=== PATIENT | female | born 1985 | race Caucasian/White ===

== ENCOUNTER 2018-12-15 11:16 | Observation (INO) | payer MEDICAID, SELFPAY ==
[2018-12-15 11:11] VITALS: BP 127/80; PULSE 89; RESP 16; TEMP 36.8; O2SAT 97
--- NOTE | 2018-12-15 11:20 | ED.GENADUL_ITS ---
Discharge Plan Disposition Patient Disposition: [facility] INPATIENT Condition: Stable Discharge Details Chief Complaint: [employer] Clinical Impression: Abdominal pain during in third trimester, Uterine contractions Admit Date/Time: 12/15/18 11:22 Admit Provider: Mohit Callahan Attending Provider: Mohit Callahan Primary Care Provider: Unknown,Unknown ED Provider: Elaine Feng Discharge Data Discharge Date/Time-TO BE ENTERED AT DEPARTURE: 12/15/18 11:24 Medical Decision Making 33-year-old female G5, P2 at 37 weeks who presents with abdominal contractions starting 3 hours ago. States the contractions around 10 to 15 minutes apart. Patient arrived per EMS who noted that she appeared to be possibly having contractions every 2 to 3 minutes. She is hemodynamically stable. She arrives to the ED appearing comfortable and relaxed. She denies vaginal bleeding or gush of fluid. Case discussed with labor and delivery nurse Marianna Rodriguez who accepts patient for transfer to the floor for monitoring. Page placed out to Dr. Rueda to accept patient for admission to OB. 1130 --discussed with Dr. Donovan who is on-call -she accepts patient for transfer to OB floor and will follow up with Dr. Rueda. HPI General Mode of arrival: EMS . Date/Time Provider Initiated Documentation: 12/15/18 11:20 . Limitations to Documentation: no limitations . Information obtained by: patient . HPI Narrative: Patient is a 33-year-old female L2 at 37 weeks who presents with abdominal contractions since 830 this morning approximately 3 hours ago. She states they were initially occurring every 25 minutes, but now are occurring every 10 to 15 minutes. She admits to a small amount of vaginal bleeding last night but none today. She denies a gush of fluid. She states she is followed by Dr. Rueda at [facility]. EMS notes that it appeared that patient may have been having contractions every 2 to 3 minutes. Related Data Allergies Allergy/AdvReac Type Severity Reaction Status Date / Time bee venom protein (honey bee) Allergy Severe Anaphylaxsi Unverified 12/16/18 10:13 s penicillin V Allergy Severe Anaphylaxsi Unverified 12/16/18 10:13 s Fish Allergy Severe Anaphylaxsi Uncoded 12/16/18 10:13 s Blueberry Flavor Allergy Mild Skin Rash Uncoded 12/16/18 10:13 General Stated Complaint: [employer] LILIBETH: 2 Review of Systems Review of Systems All systems reviewed & are unremarkable except as noted in HPI and below Constitutional Reports as per HPI, Denies chills and Denies fever(s) Eyes Denies blurry vision ENT Denies dizziness, Denies sore throat and Denies throat swelling Cardiovascular Denies chest pain and Denies dyspnea Respiratory Denies cough and Denies dyspnea Gastrointestinal Reports abdominal pain, Denies diarrhea and Denies vomiting Genitourinary Denies hematuria and Denies dysuria Musculoskeletal Denies back pain and Denies numbness Integumentary/Breasts Denies lesions and Denies rash Neurologic Denies dizziness, Denies focal weakness and Denies numbness Allergic/Immunologic Denies throat swelling REPLACED BY [facility] Medical History No significant past medical history (Acute) Surgical History No significant past surgical history (Acute) Social History Smoking/Tobacco Use Status: Current-Occasional Tobacco Type: cigarettes Alcohol Intake: never Substance use type: does not use Do you feel safe at home: Yes Exam Const General: cooperative, healthy appearing and no acute distress HENMT Head: normal to inspection Face and sinus: normal facial exam Eyes General: appearance normal, both eyes and all related structures EOM: EOM intact bilaterally Neck Neck: normal visual inspection and No submandibular swelling Lymphatic: no lymphadenopathy noted Chest Chest: normal inspection of the chest and no tenderness Resp Effort & Inspection: normal respiratory effort and able to speak in complete sentences Auscultation: clear to auscultation bilaterally Cardio Rate: regular rate Rhythm: regular rhythm GI Palpation: firm and nontender Other: gravid Skin General skin exam: no rashes or lesions noted Neuro General: alert, awake and oriented x3 Cognition: normal cognition Speech: speech normal Motor: muscle tone normal throughout Sensory Exam: no sensory deficits noted Extrem General: normal to inspection, full ROM, normal capillary refill, no calf tenderness bilaterally and no edema Psych Appearance: grossly normal Mental Status: mental status grossly normal Speech and Movement: speech and movement normal Affect: normal affect Course Vital Signs Temperature 98.2 F 12/15/18 11:11 Pulse 89 12/15/18 11:11 Respiratory Rate 16 12/15/18 11:11 Blood Pressure 127/80 12/15/18 11:11 Pulse Oximetry 97 12/15/18 11:11 Temperature 98.2 F 12/15/18 11:11 Temperature Source Skin 12/15/18 11:11 Pulse 89 12/15/18 11:11 Respiratory Rate 16 12/15/18 11:11 Respiratory Effort Non-Labored 12/15/18 11:17 Blood Pressure 127/80 12/15/18 11:11 Pulse Oximetry 97 12/15/18 11:11 Oxygen Delivery Method Room Air 12/15/18 11:11 Oxygen Flow Rate 0 12/15/18 11:11
== END 2018-12-15 14:50 | disposition home or self-care (01) ==
LOC: ER 11:26 → OBS 11:29
PROVIDERS: Admitting Provider Family Medicine; Emergency Provider Physician Assistant; Visit Provider Family Medicine
DX: Z3A.36 36 weeks gestation of pregnancy; O47.03 False labor before 37 completed weeks of gestation, third trimester
CPT/HCPCS: 84112; 96360; 96361; 99285; 99283; G0378

== ENCOUNTER 2019-01-07 16:06 | Observation (INO) | payer MEDICAID, SELFPAY | END 2019-01-07 17:35 | disposition home or self-care (01) | LOC: OBS 17:16 | PROVIDERS: Admitting Provider Family Medicine; Visit Provider Family Medicine | DX: O47.1 False labor at or after 37 completed weeks of gestation (principal); Z3A.39 39 weeks gestation of pregnancy | CPT/HCPCS: G0378 ==

== ENCOUNTER 2019-01-07 23:17 | Inpatient (IN) | payer MEDICAID, SELFPAY ==
[2018-12-15 12:44] LABS: ROM Plus Negative
--- NOTE | 2019-01-08 00:29 | HPE_ITS ---
History of Present Illness 33 yr old at 40 0/7 weeks with regular ctx and some cervical change. no rom, good fm, some bloody show. Partner, Colton, present. Two 5# 9 oz, 7# 6 oz - both girls. current preg = male early care, solid dating criteria c/w EDC 01/08/2019 persistent cig use, no substance use 24 week GST 147 - nl 3 hr gTT unemployed, housing in flux GBS neg allergies as shown labs wnl, per pn records meds: pnv, Iron exam: Alert, strong, up walking, tolerating mild/mod ctx well lungs - clear cv s- reg, no murmur ext - no edema, good sensation and pulses abd - fundus ~38 cm, non-tender, mod firm with ctx, fmvt palpated, vtx by susanna ruano poor dental condition NST - cat 1, mild/mod ctx q ~4 min, no decels admit labs pending cvx - 3 cm, 70%, -2, vtx per travel journalist ASS: early labor - some cervical change vs 5 pm exam and maternal well being expect , hl in place ambulate, nitrous prn pending progress, may AROM per her request to accelerate labor low/avg risk for shoulder dystocia - proven pelvis and avg sized by sintia webb, no GDM Plan: expect , ambulate sLeni gonzalez [facility] Social History Smoking/Tobacco Use Status: Current-Occasional Tobacco Type: cigarettes Alcohol Intake: never Substance use type: does not use Do you feel safe at home: Yes Meds Allergies Allergy/AdvReac Type Severity Reaction Status Date / Time bee venom protein (honey bee) Allergy Severe Anaphylaxsi Unverified 01/08/19 00:33 s penicillin V Allergy Severe Anaphylaxsi Unverified 01/08/19 00:33 s Fish Allergy Severe Anaphylaxsi Uncoded 01/08/19 00:33 s Blueberry Flavor Allergy Mild Skin Rash Uncoded 01/08/19 00:33 Results Labs : 01/08/19 00:35
[2019-01-08 00:43] LABS: HCT 35.2 % (36.0-46.0); HGB 11.7 g/dL (12.0-15.5); Mean Corp. HGB Concentration 33.2 g/dL (32.0-36.0); Mean Corpuscular Volume 93.1 fL (80-95); Mean Platelet Volume 10.9 fL (8.0-11.0); Platelet Count 369 x1000/uL (130-400); RBC 3.78 m/cumm (4.00-5.20); RBC Distribution Width 13.4 % (11.7-14.6); White Blood Cell Count 11.44 k/cumm (4.4-10.8)
[2019-01-08] MEDS: Oxytocin 10 UNITS/ML VIAL IM (04:47)
[2019-01-08] MEDS: Lactated Ringers 1,000 ML 150 ML IV (10:00)
--- NOTE | 2019-01-08 10:03 | W.GYNCONSULT ---
Date of service: 01/08/19 Time of Service: 10:03 Assessment and Plan (1) Sterilization consult: Current visit: Yes Status: Acute Multiparity and desire for permanent sterilization. We discussed the intended irreversibility of tubal sterilization. She has been counseled on alternative forms of contraception. Risks related to surgery were reviewed with the patient. Plan to proceed with tubal sterilization. (2) (normal spontaneous vaginal delivery): Current visit: Yes Status: Acute History of Present Illness Chief Complaint: Multiparity and desire for permanent sterilization Consults Consult date: 01/08/19 Requesting physician: Ben Isbell Review of Systems Review of Systems All systems reviewed & are unremarkable except as noted in HPI and below PFSH Social History Smoking/Tobacco Use Status: Current-Occasional Tobacco Type: cigarettes Alcohol Intake: never Substance use type: does not use Do you feel safe at home: Yes Exam Resp Auscultation: clear to auscultation bilaterally Cardio Rate: regular rate Rhythm: regular rhythm Results Labs : 01/08/19 00:35 Laboratory Results - last 24 hr 01/08/19 01/08/19 00:35 00:35 WBC 11.44 H RBC 3.78 L Hgb 11.7 L Hct 35.2 L MCV 93.1 MCH 31.0 MCHC 33.2 RDW 13.4 Plt Count 369 MPV 10.9 Patient ABO/Rh A Positive Antibody Screen Negative
[2019-01-08] MEDS: Normal Saline Flush 10 ML SYR IVP (12:00)
[2019-01-08] MEDS: Bupivacaine 0.5% Pres-Free 30 ML VIAL (14:50)
--- NOTE | 2019-01-08 14:50 | FALL_PTH ---
PATIENT: Yola Newby LOC: OBS U#:[id number] AGE/SX: 33/F ROOM: OBS.301 RE01/08/[address]: Ben Isbell : 1985 BED: A DIS: 01/09/2019 SPEC #: [id number] RECD: 01/08/19 17:07 STATUS: PONCHO RE #: [id number] DIONE: 01/08/19 14:[address]: Alex Estrada DEPT: Surgical Specimen RECD BY: Susy Barrera ENTERED: 01/08/19 17:10 SP TYPE: Fall OTHR DR: Ben Isbell Tissues: 1 - FALLOPIAN TUBE (STERILIZATION) 2 - FALLOPIAN TUBE (STERILIZATION) Procedures: GROSS AND MICRO LEVEL 2 Comments: [id number]
[2019-01-08 15:06] VITALS: BP 103/52; PULSE 66; RESP 13; TEMP 36.8; O2SAT 94
[2019-01-08 15:11] VITALS: BP 111/40; PULSE 70; RESP 20; TEMP 36.8; O2SAT 94
[2019-01-08 15:16] VITALS: BP 101/40; PULSE 71; RESP 25; TEMP 36.8; O2SAT 94
[2019-01-08 15:21] VITALS: BP 101/39; PULSE 67; RESP 16; TEMP 36.8; O2SAT 94
[2019-01-08 15:34] VITALS: BP 97/40; PULSE 65; RESP 13; TEMP 36.8; O2SAT 96
--- NOTE | 2019-01-08 16:16 | W.PM.OP ---
Date of service: 01/08/19 Time of Service: 16:16 Operative Note DATE OF PROCEDURE: 01/08/19 PRE-OP DIAGNOSIS: Multiparity and desire for permanent sterilization POST-OP DIAGNOSIS: same PROCEDURE: tubal ligation SURGEON: Alex Estrada ASSISTING SURGEON: Stephanie Winn ANESTHESIA: spinal ESTIMATED BLOOD LOSS: 0 PATHOLOGY: other (Bilateral fallopian tube segments) COMPLICATIONS: None Patient was transported to: PACU Patient's condition: stable Findings: 1. Normal tubal anatomy Procedure Description: The patient was taken to the operating room and after adequate spinal anesthesia was obtained. The patient was placed in supine position. The patient was prepped and draped in the usual sterile manner. Skin and subcutaneous tissues were infiltrated with 0.25% Marcaine solution. A small infraumbilical skin incision was then made with a #15 blade scalpel. Sharp dissection was carried down to the base of the umbilical ligament. The fascia was grasped elevated with 2 Lianet clamps and incised sharply with a 15 blade scalpel. The peritoneum was entered sharply with a hemostat. S retractor was placed. 2 sutures of 0 Vicryl were placed on either side of the fascial incision. The right fallopian tube was identified. It was grasped and elevated with a Mariana clamp and followed out to the fimbrial end. The loop segment was doubly ligated with 0 plain gut suture. The loop segment was excised with Metzenbaum scissors. Excellent hemostasis was noted. A similar procedure was carried out on the opposite side. Both fallopian tube segments were submitted to pathology. The fascia was closed with 2 [id number] sutures of 0 Vicryl. Skin was closed with interrupted sutures of 4 Monocryl and Dermabond was applied. The procedure was concluded at this point. Sponge, lap and instrument counts were correct at the conclusion of the procedure. The patient was transferred to PACU in stable condition.
[2019-01-08] MEDS: Acetaminophen 325 MG TAB 650 MG PO (17:15)
[2019-01-08] MEDS: HYDROcodone 5/Acetaminophen 325 TAB PO (22:00)
[2019-01-09 07:21] LABS: HCT 35.4 % (36.0-46.0); HGB 11.6 g/dL (12.0-15.5); Mean Corp. HGB Concentration 32.8 g/dL (32.0-36.0); Mean Corpuscular Hemoglobin 30.8 pg (27.0-33.0); Mean Corpuscular Volume 93.9 fL (80-95); Mean Platelet Volume 11.4 fL (8.0-11.0); Platelet Count 295 x1000/uL (130-400); RBC 3.77 m/cumm (4.00-5.20); RBC Distribution Width 13.5 % (11.7-14.6); White Blood Cell Count 12.27 k/cumm (4.4-10.8)
--- NOTE | 2019-01-09 08:17 | W.PM.PROGNOT ---
Date of Service Date of service: 01/09/19 Time of Service: 08:17 Assessment and Plan Assessment and plan (1) (normal spontaneous vaginal delivery): Status: Acute (2) S/P tubal ligation: Status: Acute Assessment and plan: Continue routine postop / care. Follow up as needed. Subjective Subjective Interval history since last seen: Doing well this morning. Pain well controlled. Tolerating regular diet. Objective Objective Clinical Data: Abnormal lab results 01/09/19 Range/Units 06:15 WBC 12.27 H (4.4-10.8) k/cumm RBC 3.77 L (4.00-5.20) m/cumm Hgb 11.6 L (12.0-15.5) g/dL Hct 35.4 L (36.0-46.0) % MPV 11.4 H (8.0-11.0) fL Vital Signs Temperature 98.2 F 01/08/19 15:34 Pulse 65 01/08/19 15:34 Respiratory Rate 13 01/08/19 15:34 Blood Pressure 97/40 L 01/08/19 15:34 Pulse Oximetry 96 01/08/19 15:34 Oxygen Delivery Method Room Air 01/08/19 15:34 Pain Level 4 01/08/19 23:00 Intake & Output 01/08/19 01/08/19 01/09/19 11:59 23:59 11:59 Intake Total 900 / 900 Balance 900 / 900 Weight 181 lb Intake: IV 900 / 900 Other: Emesis Description None Laboratory Results WBC 12.27 k/cumm (4.4-10.8) H 01/09/19 06:15 RBC 3.77 m/cumm (4.00-5.20) L 01/09/19 06:15 Hgb 11.6 g/dL (12.0-15.5) L 01/09/19 06:15 Hct 35.4 % (36.0-46.0) L 01/09/19 06:15 MCV 93.9 fL (80-95) 01/09/19 06:15 MCH 30.8 pg (27.0-33.0) 01/09/19 06:15 MCHC 32.8 g/dL (32.0-36.0) 01/09/19 06:15 RDW 13.5 % (11.7-14.6) 01/09/19 06:15 Plt Count 295 x1000/uL (130-400) 01/09/19 06:15 MPV 11.4 fL (8.0-11.0) H 01/09/19 06:15 Membranes Rupture Negative 12/15/18 11:55 Patient ABO/Rh A Positive 01/08/19 00:35 Antibody Screen Negative 01/08/19 00:35
[2019-01-09] MEDS: Acetaminophen 325 MG TAB 650 MG PO (08:36)
[2019-01-09] MEDS: HYDROcodone 5/Acetaminophen 325 TAB PO (13:29)
== END 2019-01-09 16:45 | disposition home or self-care (01) | DRG 798 ==
PROVIDERS: Family Medicine; Obstetrics & Gynecology; Admitting Provider Family Medicine; Visit Provider Family Medicine
PROC: 0UB70ZZ Excision of Bilateral Fallopian Tubes, Open Approach (ICD-10-PCS; CPT 58605; principal; 2019-01-08 13:30)
DX: O77.0 Labor and delivery complicated by meconium in amniotic fluid (principal); Z37.0 Single live birth; O69.81X0 Labor and delivery complicated by cord around neck, without compression, not applicable or unspecified; O99.334 Smoking (tobacco) complicating childbirth; Z3A.40 40 weeks gestation of pregnancy; Z30.2 Encounter for sterilization; F17.210 Nicotine dependence, cigarettes, uncomplicated
CPT/HCPCS: 58605; 36415; 85027; 86850; 86900; 86901; 99222; 99233; 99253; 88302; G0378; J2250; J2590

== ENCOUNTER 2019-04-07 11:10 | Outpatient (REF) | payer MEDICAID, SELFPAY ==
[2019-04-09 15:08] LABS: Chlamydia Result Negative (Negative)
[2019-04-09 15:43] LABS: GC Result Negative (Negative)
== END 2019-04-07 11:30 ==
LOC: NCHCN 11:10
PROVIDERS: PCP Nurse Practitioner Family; Visit Provider Nurse Practitioner Family
DX: N92.6 Irregular menstruation, unspecified (principal); R10.2 Pelvic and perineal pain; Z11.3 Encounter for screening for infections with a predominantly sexual mode of transmission
CPT/HCPCS: 87491; 87591; 87480; 87510; 87660

== ENCOUNTER 2020-03-19 16:07 | Outpatient (REF) | payer MEDICAID, SELFPAY ==
[2020-03-21 22:05] LABS: SARS-CoV-2 RNA Source Nasal/Nares
[2020-03-22 12:11] LABS: SARS-CoV-2 RNA Not Detected (NotDetected)
== END 2020-03-19 16:27 ==
LOC: LBN 16:07
PROVIDERS: PCP Nurse Practitioner Family; Visit Provider Nurse Practitioner Adult Health
DX: Z11.59 Encounter for screening for other viral diseases (principal)
CPT/HCPCS: U0003

== ENCOUNTER 2020-11-09 10:43 | Outpatient (REF) | payer MEDICAID, SELFPAY ==
--- NOTE | 2020-11-09 14:15 | PAPFT_PTH ---
PATIENT: Yola Newby LOC: NCN U#:[id number] AGE/SX: 35/F ROOM: RE11/09/[address]: Rosey Juarez : 1985 BED: DIS: 11/09/2020 SPEC #: [id number] RECD: 11/10/20 12:44 STATUS: PONCHO RELavelle #: [id number] DIONE: 11/09/20 14:[address]: Rosey Juarez DEPT: [facility] Cytology RECD BY: Susy Barrera Tissues: 1 - CX/ENDOCX FOR PAP SMEARS Procedures: PAP THIN PREP/UVM Screening HPV DNA PROBE Comments: [id number] (HPV 16 & 18/45)
[2020-11-09 20:21] LABS: ALT 36 U/L (14-59); AST 25 U/L (15-37); Albumin 3.9 g/dL (3.4-5.0); Alkaline Phosphatase 84 U/L (46-116); Anion Gap 10.4 mmol/L (3-11); BUN 15 mg/dL (7-18); Bilirubin, Total 0.4 mg/dL (0.2-1.0); CO2 23.6 mmol/L (21.0-32.0); CREATININE 0.6 mg/dL (0.55-1.02); Calcium 9.3 mg/dL (8.5-10.1); Chloride 106 mmol/L (98-107); Glucose 92 mg/dL (74-106); Potassium 4.8 mmol/L (3.5-5.1); Sodium 140 mmol/L (136-145); TSH (W/Ref FT4) 1.41 uIU/mL (0.36-3.74); Total Protein 7.3 g/dL (6.4-8.2)
[2020-11-10 20:34] LABS: Calculated LDL 103 mg/dL (<100); Cholesterol 189 mg/dL (<200); HDL Cholesterol 28 mg/dL (40-60); Triglyceride 290 mg/dL (<150)
== END 2020-11-09 10:44 | disposition home or self-care (01) ==
LOC: NCHCN 10:43
PROVIDERS: PCP Nurse Practitioner Family; Visit Provider Nurse Practitioner Family
DX: R63.5 Abnormal weight gain (principal); Z13.228 Encounter for screening for other metabolic disorders; Z13.220 Encounter for screening for lipoid disorders; Z12.4 Encounter for screening for malignant neoplasm of cervix; Z11.51 Encounter for screening for human papillomavirus (HPV); R87.810 Cervical high risk human papillomavirus (HPV) DNA test positive
CPT/HCPCS: 80053; 80061; 88142; 83036; 84443; 87624

== ENCOUNTER 2021-06-06 15:03 | Emergency (ER) | payer MEDICAID, SELFPAY ==
[2021-06-06 15:21] VITALS: BP 150/103; PULSE 91; RESP 18; TEMP 36.7; O2SAT 98
--- NOTE | 2021-06-06 15:58 | ED.GENADUL_ITS ---
Discharge Plan Disposition Patient Disposition: HOME Condition: Stable Discharge Details Clinical Impression: Headache, temporal Primary Care Provider: Rosey Juarez ED Provider: Naida Menezes Home Meds and New Rx's Prescriptions: Continued calcium carbonate [Tums] 200 mg calcium (500 mg) tablet,chewable 200 mg PO PRN RF: 0 ibuprofen 600 mg tablet 600 mg PO Q6H PRN (Reason: pain) Qty: 30 RF: 1 PNV cmb#95-ferrous fumarate-FA [] 28 mg iron- 800 mcg Tablet 1 tab PO DAILY RF: 0 Discharge Instructions Instructions: General Headache (ED) Additional Instructions: As we discussed, your labs and imaging are reassuring here today. Your laboratory markers minimally elevated but this is not really suggestive of severe cause of headache. Please try to reduce your stress, get plenty of sleep, drink plenty of water and try to cut back on your caffeine in a slow manner. Please keep your appointment tomorrow with your primary care. If you develop fever/chills increased pain, pain, recurrence of your visual symptoms or other new/worsening care once again. Referrals: Rosey Juarez [Primary Care Provider] - Medical Decision Making Patient is a pleasant 35-year-old female, significant past medical history, presenting to complaint of headache. She describes the headache having left oriental orthodox pain. She reports that the headache comes and goes, had approximately 6- 7 episodes today. Denies any alleviating or precipitating factors of her symptoms. States that this is been coming and going the past 3 days. States that overall they seem to be slightly improved as yesterday she is experiencing a vertical diplopia associated with these brief episodes of severe pain. Reports that when she does have the pain last 1 to 2 minutes. She denies any associated nausea or vomiting. No radiation of pain. States that the pain can improve slightly if she applies pressure to the left oriental orthodox. This is not worse when she is eating. Has not woken her from sleep. She denies any fevers or chills. She denies any trauma. Denies any neck pain. Has not noted any weakness or focal deficits. No significant past familial history. On exam, patient appears nontoxic. She is hypertensive with a blood pressure of 150/103. States she has had issues with elevated blood pressure historically. She is not actively having any headaches. Her neurologic exam is intact. The right pupils is noted to be slightly larger than the left patient reports that this is baseline and not associated with the past 3 days. She does not have any pain on palpation over the left temporal. No pain with palpation over the TMJ or when clenching. Did not have any photophobia. She denies any change in her hearing. Broad differential at this time. However, the vertical diplopia certainly concerning for potential central cause of her headache. Alternatively, the patient does report that she had a large amount of stress.. I do feel that evaluation for temporal arteritis would be appropriate. Is quite young for this but is a active smoker. Also continue potential tumor, aneurysm. Will obtain CT with and without contrast as well as baseline labs. Discussed this plan with the patient. Will consult with neurology. Patient has tried Tylenol and anti-inflammatories without resolution of the discomfort Neurology not available currently. FINDINGS: ANTERIOR CIRCULATION: Right internal carotid artery: Unremarkable. Intracranial segment is patent with no significant stenosis. No aneurysm. Right middle cerebral artery: Unremarkable. No occlusion or significant stenosis. No aneurysm. Right anterior cerebral artery: Unremarkable. No occlusion or significant stenosis. No aneurysm. Left internal carotid artery: Unremarkable. Intracranial segment is patent with no significant stenosis. No aneurysm. Left middle cerebral artery: Unremarkable. No occlusion or significant stenosis. No aneurysm. Left anterior cerebral artery: Unremarkable. No occlusion or significant stenosis. No aneurysm. POSTERIOR CIRCULATION: Right vertebral artery: Unremarkable. No occlusion or significant stenosis. No aneurysm. Left vertebral artery: Unremarkable. No occlusion or significant stenosis. No aneurysm. Basilar artery: Unremarkable. No occlusion or significant stenosis. No aneurysm. Right posterior cerebral artery: Unremarkable. No occlusion or significant stenosis. No aneurysm. Left posterior cerebral artery: Unremarkable. No occlusion or significant stenosis. No aneurysm. Brain: No intracranial mass, acute infarct or recent hemorrhage detected. Cerebral ventricles: No midline shift or hydrocephalus. Bones/joints: No acute fracture. Mastoid air cells: Grossly clear bilaterally. Soft tissues: Unremarkable. Paranasal sinuses: Grossly clear throughout. IMPRESSION: No large vessel stenosis or occlusion detected involving the major branches of the anterior or posterior intracranial circulation. FINDINGS: Right common carotid artery: No stenosis. No dissection or occlusion. Right internal carotid artery: No stenosis of the extracranial segment. No dissection or occlusion. Right external carotid artery: No occlusion or stenosis of the origin. Left common carotid artery: No stenosis. No dissection or occlusion. Left internal carotid artery: No stenosis of the extracranial segment. No dissection or occlusion. Left external carotid artery: No occlusion or stenosis of the origin. Right vertebral artery: No stenosis. No dissection or occlusion. Left vertebral artery: No stenosis. No dissection or occlusion. Soft tissues: Normal. No significant soft tissue swelling. Bones/joints: No acute fracture. IMPRESSION: No evidence of 50% or greater stenosis involving the cervical segments of the right or left internal carotid arteries by NASCET criteria. Labs reviewed. Patient is a white count of 12.03, this appears to be baseline based on 2 previous records. Platelet count is elevated at 422. CMP without abnormality. CRP within normal limits. ESR is minimally elevated at 24. There is highly elevated ESR does have any continue to be concerned for temporal arteritis. However, she not having any other symptoms claudication. Her pain is actually relieved with compression applied over this area when she is experien cing a headache. Her history and exam simply not aligning with this initial concern. None of abundance of caution, will consult with general surgery and discussed need for possible steroids as well is biopsy Consulted with Dr. Valdez. She recommended f/u with PCP with possible neurology follow up. Advised to hold off on steroids for now. I discussed these findings with the patient. I did discuss my small concern for temporal arteritis with a clinically this does not correlate. She agrees with holding off on steroids for the time being. She has an appoint with her primary care provider tomorrow. I will also asked that care management ensure neurology is aware of this patient although I would like for primary care to evaluate her first. I also encouraged general improvement in overall health and stress reduction and this may also be contributing to her symptoms. She does report that she has had a large amount of stress recently. Tends to be physically depressed as well. I did discuss with her the importance of sleep hygiene, hydration. Also considered caffeine abuse headache., She does drink a copious amount of caffeine throughout the course of the day advised that the large fernando unt can contribute to headaches as well. Patient strict return precautions were discussed. Patient is in agreement with this plan. All of her questions concerns were addressed. HPI General Mode of arrival: ambulatory . Date/Time Provider Initiated Documentation: 06/06/21 15:08 . Limitations to Documentation: no limitations . Information obtained by: patient and RN notes reviewed . History of Present Illness 35 year old F presents to the emergency department with the chief complaint of intermittent ADLER over left oriental orthodox, described as moderate, with intensity rated at 6 (pain currently 0/10). Quality is described as sharp, and is localized to the head. Patient reports no radiation. Patient started experiencing this day(s) (3) and it has been intermittent. No relieving factors improve symptom(s), No exacerbating factors reported . Patient notes no other symptoms.. Patient did receive the following treatments prior to arrival, NSAID Related Data Home Medications Medication Instructions Recorded Confirmed PNV cmb#95-ferrous fumarate-FA 1 tab PO DAILY 01/08/19 01/08/19 [] calcium carbonate 200 mg calcium 200 mg PO PRN tab 04/01/20 (500 mg) chewable tablet ibuprofen 600 mg tablet 600 mg PO Q6H PRN #30 tab 04/01/20 04/01/20 Previous Rx's Medication Instructions Recorded ibuprofen 600 mg tablet 600 mg PO Q6H PRN #30 tab 04/01/20 Allergies Allergy/AdvReac Type Severity Reaction Status Date / Time bee venom protein (honey bee) Allergy Severe Anaphylaxsi Verified 04/01/20 14:25 s penicillin V Allergy Severe Anaphylaxsi Verified 04/01/20 14:25 s Fish Allergy Severe Anaphylaxsi Uncoded 01/08/19 00:33 s Blueberry Flavor Allergy Mild Skin Rash Uncoded 01/08/19 00:33 General Stated Complaint: Headache LILIBETH: 3 Review of Systems Constitutional Constitutional: Reports as per HPI, Denies chills, Reports fatigue, Denies fever(s), Denies frequent falls, Reports headache(s) and Denies weakness Eyes Eyes: Reports as per HPI, Reports blurry vision (only during episode of pain, further describes as verticle diplopia), Denies change in vision and Denies photophobia ENT Ears, Nose, Mouth, and Throat: Denies vertigo, Reports headache(s) and Denies neck pain Cardiovascular Cardiovascular: Reports as per HPI, Denies chest pain, Denies lightheadedness and Denies dyspnea Respiratory Respiratory: Reports as per HPI, Denies cough and Denies dyspnea Gastrointestinal Gastrointestinal: Reports as per HPI, Denies abdominal pain, Denies nausea and Denies vomiting Musculoskeletal Musculoskeletal: Reports as per HPI, Denies back pain, Denies myalgias, Denies muscle cramps, Denies neck pain and Denies numbness Integumentary/Breasts Skin/Breast: Reports as per HPI and Denies rash Neurologic Neurologic: Reports as per HPI, Denies abnormal movements, Denies abnormal spe ech, Denies behavioral changes, Denies confusion, Denies vertigo, Denies frequent falls, Reports headache(s), Denies localized weakness, Denies numbness, Denies sensory deficit and Denies weakness Psychiatric Psychiatric: Denies behavioral changes and Denies confusion Endocrine Endocrine: Reports fatigue PFSH All Active Problems (Updated 06/06/21 @ 18:51 by AMILCAR Bunch) Headache, temporal (Acute) Other specified counseling (Acute) S/P tubal ligation (Acute) (normal spontaneous vaginal delivery) (Acute) Sterilization consult (Acute) Medical History (Updated 06/06/21 @ 18:51 by AMILCAR Bunch) No significant past medical history Surgical History (Updated 01/09/19 @ 08:18 by Alex Estrada MD) No significant past surgical history Family History Mother Anemia Blood clot in vein Maternal Aunt Breast cancer Maternal Aunt Breast cancer Social History Smoking/Tobacco Use Status: Current-Occasional Tobacco Type: cigarettes Smoking risk assessment performed?: Yes Alcohol Intake: never Substance use type: does not use Do you feel safe at home: Yes Exam Const General: cooperative, healthy appearing, comfortable (patiet currently asympatomic), no acute distress, well developed and well groomed Nutritional Appearance: well nourished and overweight Orientation: alert, awake and oriented x3 HENMT Head: normal to inspection, no palpable skull fracture, normocephalic and atraumatic Ears: hearing grossly normal bilaterally, external ears normal and TM's normal bilaterally General nose exam: external nose normal Mouth: oral mucosae normal and moist mucous membranes Throat: posterior oropharynx normal Eyes General: appearance normal, both eyes and all related structures Alignment and Position: alignment normal Periorbital: periorbital findings normal Eyelids: eyelids normal Sclera: sclerae normal Cornea: corneas normal Pupils: PERRL (right pupil larger than left, she reports this is baseline) EOM: EOM intact bilaterally Neck Neck: normal visual inspection, full ROM, no lymphadenopathy and no meningeal signs Resp Effort & Inspection: normal respiratory effort, able to speak in complete sentences and no respiratory distress Auscultation: clear to auscultation bilaterally, no rales, no rhonchi and no wheezes Cardio Rate: regular rate Rhythm: regular rhythm Heart Sounds: S1 normal and S2 normal GI Inspection: distended Back/Spine/Pelvis Cervical Spine: normal cervical lordosis and cervical ROM normal Skin General skin exam: no rashes or lesions noted Neuro General: patient alert, patient awake and patient oriented x3 Cranial Nerves: CN's II-XI intact bilaterally Cognition: normal cognition Speech: speech normal Gait: normal gait Motor: muscle tone normal throughout, strength 5/5 throughout, no pronator drift, no movement abnormalities noted and no fasciculations Sensory Exam: no sensory deficits noted Coordination: [id number] test normal and [id number]-[id number] test normal Extrem General: normal to inspection, capillary refill normal, no pedal edema and no calf tenderness Psych Appearance: grossly normal and well kempt Mental Status: mental status grossly normal Speech and Movement: speech and movement normal Course Vital Signs Vital signs: Vital Signs Temperature 36.7 C 06/06/21 15:21 Pulse 91 H 06/06/21 15:21 Respiratory Rate 18 06/06/21 15:21 Blood Pressure 150/103 H 06/06/21 15:21 Pulse Oximetry 98 06/06/21 15:21 Temperature 36.7 C 06/06/21 15:21 Temperature Source Tympanic 06/06/21 15:21 Pulse 91 H 06/06/21 15:21 Respiratory Rate 18 06/06/21 15:21 Respiratory Effort 06/06/21 15:25 Blood Pressure 150/103 H 06/06/21 15:21 Blood Pressure Position Supine 06/06/21 15:21 Pulse Oximetry 98 06/06/21 15:21 Oxygen Delivery Method Room Air 06/06/21 15:21 Oxygen Flow Rate 0 06/06/21 15:21 Pain Level 6 06/06/21 15:25
--- NOTE | 2021-06-06 16:00 | DI.CT_ITS ---
Exam(s) CT BRAIN NECK CTA EXAM: CT BRAIN NECK CTA CLINICAL HISTORY: new onset ADLER left orthodoxy. TECHNIQUE: Imaging Protocol: Axial CT angiography was performed with multi-slice acquisition and mu lti-planar and/or 3D reconstructions. CONTRAST MATERIAL: Intravenous: Omnipaque 350 Contrast volume:85 mL COMPARISON: No exams were available for comparison FINDINGS: CT Head W/O and W: Ventricles and Extra axial spaces: Normal in size and morphology for the patient's age. Hemorrhage: None. Cerebral parenchyma: Normal. Midline shift: None. Brainstem/Cerebellum: Normal. Calvarium: Normal. Visualized Paranasal sinuses/Mastoids: Clear. Soft Tissues: Unremarkable. Enhancement: Unremarkable. CTA Neck W: Common Carotid: Right: No dissection, occlusion or significant stenosis. Left: No dissection, occlusion or significant stenosis. External Carotid: Right: No occlusion or significant stenosis. Left: No occlusion or significant stenosis. Internal Carotid: Right: No dissection, occlusion or significant stenosis. Left: No dissection, occlusion or significant stenosis. Vertebral Artery: Right: No dissection, occlusion or significant stenosis. Left: No dissection, occlusion or significant stenosis. Lung Apices: Normal. Bones: Within normal limits for the patient's age. Degenerative changes are seen at C5-C6. Soft Tissues: Normal. Thyroid gland: Unremarkable. CTA Brain W: Internal Carotid Arteries: Normal. Anterior Cerebral Arteries: Right: No aneurysm, occlusion or significant stenosis. Left: No aneurysm, occlusion or significant stenosis. Middle Cerebral Arteries: Right: No aneurysm, occlusion or significant stenosis. Left: No aneurysm, occlusion or significant stenosis. Posterior Cerebral Arteries: Right: No aneurysm, occlusion or significant stenosis. Left: No aneurysm, occlusion or significant stenosis. Vertebral Arteries: Right: No aneurysm, occlusion or significant stenosis. Left: No aneurysm, occlusion or significant stenosis. Basilar Artery: No aneurysm, occlusion or significant stenosis. IMPRESSION: 1. No large vessel occlusion or significant stenosis on the CT angiography of the head. 2. No acute intracranial process. 3. No occlusion or significant stenosis on the CT angiography of the neck. RADIATION DOSE DELIVERED: 1,705.4mGy.cm Total DLP DATA REPOSITORY: All CT scans at this facility are submitted to the National Radiology Data Registry (NRDR) Dose Index Registry (DIR) with the [employer] (ACR). RADIATION OPTIMIZATION: All CT scans at this facility use at least one of these dose optimization te chniques: automated exposure control; mA and/or kV adjustment per patient size (includes targeted exa ms where dose is matched to clinical indication); or iterative reconstruction.
[2021-06-06 16:38] LABS: Abs Immature Grans 0.04 10^3/uL (0.0-0.06); Absolute Basophil Count 0.04 10^3/uL (0.0-0.2); Absolute Eosinophil Count 0.32 10^3/uL (0.0-0.7); Absolute Lymphocyte Count 4.01 10^3/uL (1.2-3.4); Absolute Monocyte Count 0.67 10^3/uL (0.1-0.8); Absolute Neutrophil Count 6.95 10^3/uL (1.2-6.7); Basophils % 0.3; Eosinophils % 2.7; HCT 45.1 % (36.0-46.0); HGB 14.7 g/dL (11.2-15.7); Immature Grans % 0.3; Lymphocytes % 33.3; MCH 29.3 pg (27.0-33.0); MCHC 32.6 % (32.0-36.0); MCV 89.8 fL (80-95); Monocytes % 5.6; Neutrophils % 57.8; Nucleated RBC 0 %; Platelet Count 422 10^3/uL (130-400); RBC 5.02 10^6/uL (3.93-5.22); RDW-SD 39.5 fL; WBC 12.03 10^3/uL (4.4-10.8)
[2021-06-06 16:40] LABS: ESR 24 mm/hr (0-20)
[2021-06-06 16:50] LABS: ALT 34 U/L (14-59); AST 17 U/L (15-37); Alkaline Phosphatase 93 U/L (46-116); Anion Gap 7.5 mmol/L (3-11); BUN 10 mg/dL (7-18); Bilirubin, Total 0.2 mg/dL (0.2-1.0); C-Reactive Protein 0.22 mg/dL (0.0-0.3); CO2 27.5 mmol/L (21.0-32.0); CREATININE 0.7 mg/dL (0.55-1.02); Calcium 9.3 mg/dL (8.5-10.1); Chloride 103 mmol/L (98-107); Glucose 98 mg/dL (74-106); Potassium 4.2 mmol/L (3.5-5.1); Sodium 138 mmol/L (136-145); Total Protein 7.9 g/dL (6.4-8.2)
[2021-06-06 17:13] VITALS: BP 123/73; PULSE 85; RESP 16; TEMP 36.5; O2SAT 97
[2021-06-06] MEDS: Omnipaque 350 MG/ML 100 ML BTL IJ (17:22)
[2021-06-06] MEDS: Normal Saline 1,000 ML 1000 ML IV (17:42)
--- NOTE | 2021-06-06 17:51 | DI.VRAD_ITS ---
PROCEDURE INFORMATION: Exam: CT Angiography Head With Contrast, Arteriography Exam date and time: 06/06/2021 4:06 PM Age: 35 years old Clinical indication: Other: Left sided temporal headache TECHNIQUE: Imaging protocol: Computed tomography angiography of the head with contrast. Exam focused on the arteries. 3D rendering (Not supervised by radiologist): MIP and/or 3D reconstructed images were created by the technologist. Radiation optimization: All CT scans at this facility use at least one of these dose optimization techniques: automated exposure control; mA and/or kV adjustment per patient size (includes targeted exams where dose is matched to clinical indication); or iterative reconstruction. Contrast material: OMNIPAQUE 350; Contrast volume: 100 ml; Contrast route: INTRAVENOUS (IV); COMPARISON: No relevant prior studies available. FINDINGS: ANTERIOR CIRCULATION: Right internal carotid artery: Unremarkable. Intracranial segment is patent with no significant stenosis. No aneurysm. Right middle cerebral artery: Unremarkable. No occlusion or significant stenosis. No aneurysm. Right anterior cerebral artery: Unremarkable. No occlusion or significant stenosis. No aneurysm. Left internal carotid artery: Unremarkable. Intracranial segment is patent with no significant stenosis. No aneurysm. Left middle cerebral artery: Unremarkable. No occlusion or significant stenosis. No aneurysm. Left anterior cerebral artery: Unremarkable. No occlusion or significant stenosis. No aneurysm. POSTERIOR CIRCULATION: Right vertebral artery: Unremarkable. No occlusion or significant stenosis. No aneurysm. Left vertebral artery: Unremarkable. No occlusion or significant stenosis. No aneurysm. Basilar artery: Unremarkable. No occlusion or significant stenosis. No aneurysm. Right posterior cerebral artery: Unremarkable. No occlusion or significant stenosis. No aneurysm. Left posterior cerebral artery: Unremarkable. No occlusion or significant stenosis. No aneurysm. Brain: No intracranial mass, acute infarct or recent hemorrhage detected. Cerebral ventricles: No midline shift or hydrocephalus. Bones/joints: No acute fracture. Mastoid air cells: Grossly clear bilaterally. Soft tissues: Unremarkable. Paranasal sinuses: Grossly clear throughout. IMPRESSION: No large vessel stenosis or occlusion detected involving the major branches of the anterior or posterior intracranial circulation. PROCEDURE INFORMATION: Exam: CT Angiography Neck With Contrast Exam date and time: 06/06/2021 4:06 PM Age: 35 years old Clinical indication: Other: Left sided temporal headache TECHNIQUE: Imaging protocol: Computed tomography angiography of the neck with contrast. 3D rendering (Not supervised by radiologist): MIP and/or 3D reconstructed images were created by the technologist. Radiation optimization: All CT scans at this facility use at least one of these dose optimization techniques: automated exposure control; mA and/or kV adjustment per patient size (includes targeted exams where dose is matched to clinical indication); or iterative reconstruction. Contrast material: OMNIPAQUE 350; Contrast volume: 100 ml; Contrast route: INTRAVENOUS (IV); COMPARISON: No relevant prior studies available. FINDINGS: Right common carotid artery: No stenosis. No dissection or occlusion. Right internal carotid artery: No stenosis of the extracranial segment. No dissection or occlusion. Right external carotid artery: No occlusion or stenosis of the origin. Left common carotid artery: No stenosis. No dissection or occlusion. Left internal carotid artery: No stenosis of the extracranial segment. No dissection or occlusion. Left external carotid artery: No occlusion or stenosis of the origin. Right vertebral artery: No stenosis. No dissection or occlusion. Left vertebral artery: No stenosis. No dissection or occlusion. Soft tissues: Normal. No significant soft tissue swelling. Bones/joints: No acute fracture. IMPRESSION: No evidence of 50% or greater stenosis involving the cervical segments of the right or left internal carotid arteries by NASCET criteria. REFERENCES: NASCET CRITERIA. The degree of internal carotid artery stenosis is based on NASCET criteria. Normal is no stenosis. Mild is less than 50% stenosis. Moderate is 50-69% stenosis. Severe is 70% to 99% stenosis. Total occlusion is no detectable patent lumen. Dictated and Authenticated by: Juan Ventura MD. Ordering:DENIS Pascal MD
--- NOTE | 2021-06-06 20:16 | NUR.NOTE ---
Nursing Note: PT INFO FAXED TO NEUROLOGY. PROVIDER REQUESTING NEUROLOGIST VIEW PT CHART FOR RECENT ED VISIT. SOURAV, MISSAEL
== END 2021-06-06 19:07 | disposition home or self-care (01) ==
PROVIDERS: Emergency Provider Physician Assistant; PCP Nurse Practitioner Family
DX: R51.9 Headache, unspecified (principal); I10 Essential (primary) hypertension; H53.2 Diplopia; F17.210 Nicotine dependence, cigarettes, uncomplicated
CPT/HCPCS: 70496; 70498; 80053; 81025; 85652; 96360; 99285; 85025; 86140; 99284; J3490

== ENCOUNTER 2021-11-28 17:40 | Outpatient (REF) | payer MEDICAID, SELFPAY | END 2021-11-28 17:41 | disposition home or self-care (01) | LOC: LBN 17:40 | PROVIDERS: PCP Nurse Practitioner Family; Visit Provider Nurse Practitioner Family | DX: J35.1 Hypertrophy of tonsils (principal) | CPT/HCPCS: 87070 ==

== ENCOUNTER 2022-06-29 15:41 | Outpatient (REF) | payer MEDICAID, SELFPAY ==
--- NOTE | 2022-06-29 15:00 | PAPFT_PTH ---
PATIENT: Yola Newby LOC: NCN #:[id number] AGE/SX: 36/F ROOM: RE06/29/[address]: oRsey Juarez : 1985 BED: DIS: 06/29/2022 SPEC #: [id number] RECD: 06/29/22 18:01 STATUS: PONCHO PEREZ #: [id number] DIONE: 06/29/22 15:[address]: Rosey Juarez DEPT: [facility] Cytology RECD BY: Susy Barrera Tissues: 1 - CX/ENDOCX FOR PAP SMEARS Procedures: PAP THIN PREP/UVM Screening HPV DNA PROBE Comments: [id number]
== END 2022-06-29 15:42 | disposition home or self-care (01) ==
LOC: NCHCN 15:41
PROVIDERS: PCP Nurse Practitioner Family; Visit Provider Nurse Practitioner Family
DX: Z12.4 Encounter for screening for malignant neoplasm of cervix (principal); Z11.51 Encounter for screening for human papillomavirus (HPV)
CPT/HCPCS: 88142; 87624

== ENCOUNTER → 2023-06-11 00:54 | Outpatient (CLI) | payer MEDICAID, SELFPAY ==
--- NOTE | 2023-06-11 | DI.US_ITS ---
Exam(s) MG MAMMO DIAGNOSTIC BI US BREAST LT LIMITED EXAM: MG MAMMO DIAGNOSTIC BI CLINICAL HISTORY: DIAGNOSTIC, LT BREAST PAIN, MASTODYNIA,N64.4,TENDER TO PALPATION. COMPARISON: No exams were available for comparison TECHNIQUE: Craniocaudal and mediolateral oblique Full Field Digital Mammography views of both breast s with Computer Aided Diagnosis followed by Tomosynthesis and left breast ultrasound. FINDINGS: Mammography/Tomosynthesis: Masses/Architectural Distortion: None seen. Microcalcifications: No suspicious pleomorphic-type are seen. Skin Thickening/Nipple Retraction: None. Left breast US: Echotexture: Normal appearance of the glandular tissue. Shadowing: No suspicious foci. Cyst: None. Solid lesions: None seen. Ductal dilation: None. IMPRESSION: 1. No evidence of malignancy is noted. 2. Unless there is more urgent need, follow-up screening mammography is recommended, as per [employer] [employer] guidelines. BI-RADS Category 1 - Negative Breast Density - Category B - Scattered areas of fibroglandular density Breast density category C or D implies that the patient has dense breast tissue. Dense breast tissue is very common and is not abnormal but dense breast tissue can make it harder to find cancer on a ma mmogram. Also, dense breast tissue may increase their breast cancer risk. This information about the result of the mammogram report was provided to the patient to raise their awareness. Use this report when you speak with the patient about their risks for breast cancer, which includes their family hist ory. At that time, you may recommend for more screening tests (Ultrasound or MRI) as they might be us eful based on their risk. A negative radiographic report should not delay biopsy if a dominant or clinically suspicious mass is present. Up to ten percent of cancers are not identified on mammography. A negative report may reinforce clinical impression. Adenosis and dense breasts may obscure an underlying neoplasm. False positive reports average 6 to 10%. Patient will receive a letter notifying them of these results.
== END ==
PROVIDERS: PCP Nurse Practitioner Family; Visit Provider Physician Assistant Medical
DX: N64.4 Mastodynia (principal); Z12.31 Encounter for screening mammogram for malignant neoplasm of breast
CPT/HCPCS: 76642; 77062; 77066; G0279

== ENCOUNTER 2023-06-27 14:55 | Outpatient (REF) | payer MEDICAID, SELFPAY | END 2023-06-27 14:56 | disposition home or self-care (01) | LOC: LBN 14:55 | PROVIDERS: PCP Nurse Practitioner Family; Visit Provider Physician Assistant Medical | DX: R30.0 Dysuria (principal) | CPT/HCPCS: 87077; 87086; 87186 ==

== ENCOUNTER 2024-07-22 14:50 | Outpatient (REF) | payer BC, SELFPAY | END 2024-07-22 14:51 | disposition home or self-care (01) | LOC: LBN 14:50 | PROVIDERS: Visit Provider Physician Assistant | DX: N39.0 Urinary tract infection, site not specified (principal) | CPT/HCPCS: 87077; 87086; 87186 ==

== ENCOUNTER 2024-10-26 16:15 | Emergency (ER) | payer BC, SELFPAY ==
[2024-10-26 16:16] VITALS: BP 127/86; PULSE 91; RESP 18; TEMP 36.6; O2SAT 98
--- NOTE | 2024-10-26 16:21 | W.ED.GENAD ---
Discharge Plan Disposition Patient Disposition: Home Condition: Good Discharge Details Clinical Impression: Pyelonephritis Primary Care Provider: Unknown,Unknown ED Provider: Catherine Contreras Home Meds and New Rx's Prescriptions: New sulfamethoxazole-trimethoprim [Bactrim DS] 800-160 mg tablet 1 tab PO BID Qty: 12 0RF No Action calcium carbonate [Tums] 200 mg calcium (500 mg) tablet,chewable 200 mg PO PRN ibuprofen 600 mg tablet 600 mg PO Q6H PRN (Reason: pain) Qty: 30 1RF PNV cmb#95-ferrous fumarate-FA [] 28 mg iron- 800 mcg Tablet 1 tab PO DAILY propranolol 10 mg tablet 10 mg PO BID PRN Patient Comments: TAKE ONE TO TWO TABLETS BY MOUTH TWICE EVERY DAY FOR ACUTE ANXIETY lidocaine 5 % adhesive patch,medicated 1 patch topical DAILY Patient Comments: APPLY 1 PATCH TOPICALLY DAILY DIRECTED, 8 HOURS ON AND THEN 8 HOURS OFF hydroxyzine HCl 10 mg tablet 10 mg PO BID PRN Patient Comments: TAKE ONE TO TWO TABLETS BY MOUTH TWICE EVERY DAY NEEDED FOR ACUTE ANXIETY Discharge Instructions Instructions: Urinary Tract Infection, Adult ED Additional Instructions: Please call [facility] first thing in the morning to schedule follow-up appointment later this week for reassessment. You are being treated for a UTI/kidney infection. Please take the Bactrim for the full course as prescribed or as advised by your primary care provider. Stay very well-hydrated, drinking plenty of fluids throughout the day to help flush out your kidneys/bladder. Avoid bladder irritants such as acidic/citrus foods, carbonated beverages, and caffeine. You may use Aleve or Tylenol as needed for discomfort. Return to emergency care if you develop new fevers associated with flank pain, worsening pain, inability to urinate, or unable to hold down any fluids or medicines, or if you are very worried and need to be rechecked again immediate Referrals: [facility] [Provider Group] Unknown,Unknown [Primary Care Provider, Unknown] HPI General Date/Time Provider Initiated Documentation: 10/26/24 16:17. HPI Narrative: Yola is a 39 y/o female who presents to the ED today for evaluation of LLQ pain radiating around to the L flank. Pain onset in left flank at 1100 hours today, described as burning, radiating to lower abdomen (where it is described as a stabbing/sharp pain like being hit with a hammer), different from previous kidney stone episodes. No medication taken for pain, only usual morning medications. Denies associated fevers/chills, congestion, headache, ear pain, sore throat, coughing, nausea/vomiting, dysuria, change in bowel or bladder function, or black/tarry stools. Reports intermittent vaginal bleeding/menstrual cycles throughout the month, currently in third week of menstruation. Began with spotting, followed by full bleeding for 2-3 days, now regular menstrual flow. History of irregular cycles but never 3 in one month. No unusual vaginal symptoms or discharge. Avoids ibuprofen due to ulcer, takes Tums for occasional discomfort. PMH significant for history of kidney stones, passed naturally without intervention. Most recently diagnosed with UTI in 06/2024, treated with Bactrim, resistant to ciprofloxacin and levofloxacin. Tubal ligation and ruptured cyst previously, current pain different. On propranolol and hydroxyzine for anxiety. PAST SURGICAL HISTORY: Tubal ligation Related Data Home Medications ?Medication ?Instructions ?Recorded ?Confirmed vit no.95-ferrous 1 tab PO DAILY 01/08/19 10/26/24 fumarate 28 mg-folic acid 800 mcg tablet () Held on 10/26/24. Instructions: Pt Stopped/Never Started calcium carbonate (Tums) 200 mg PO PRN 04/01/20 10/26/24 ibuprofen 600 mg tablet 600 mg PO Q6H PRN pain #30 tabs 04/01/20 10/26/24 Held on 10/26/24. Instructions: Pt Stopped/Never Started hydroxyzine HCl 10 mg tablet 10 mg PO BID PRN 10/26/24 10/26/24 lidocaine 5 % topical patch 1 patch topical DAILY 10/26/24 10/26/24 propranolol 10 mg tablet 10 mg PO BID PRN 10/26/24 10/26/24 sulfamethoxazole 800 1 tab PO BID #12 tabs 10/26/24 mg-trimethoprim 160 mg tablet (Bactrim DS) Previous Rx's ?Medication ?Instructions ?Recorded ibuprofen 600 mg tablet 600 mg PO Q6H PRN pain #30 tabs 04/01/20 Held on 10/26/24. Instructions: Pt Stopped/Never Started sulfamethoxazole 800 1 tab PO BID #12 tabs 06/29/25 mg-trimethoprim 160 mg tablet (Bactrim DS) Allergies Allergy/AdvReac Type Severity Reaction Status Date / Time bee venom protein (honey bee) Allergy Severe Anaphylaxsi Verified 10/26/24 16:21 s penicillin V Allergy Severe Anaphylaxsi Verified 10/26/24 16:21 s Fish Allergy Severe Anaphylaxsi Uncoded 10/26/24 16:21 s Blueberry Flavor Allergy Mild Skin Rash Uncoded 10/26/24 16:21 General Stated Complaint: FlankPain LILIBETH: 3 Exam Narrative Exam Narrative: General Appearance: Alert and oriented, appears uncomfortable, holding LLQ Vital signs: Afebrile, no hypotension, mild tachycardia (HR 91) Respiratory: Easy work of breathing, lung sounds clear bilaterally. Able to speak in full sentences. Cardiovascular: Normal heart sounds, regular rate and rhythm, Gastrointestinal: Tenderness in left lower abdomen upon palpation. Abdomen soft, nondistended, no rigidity or guarding with normoactive BS : No CVA tenderness Skin: Warm and dry, no rash. Psychiatric: Normal. Course Vital Signs Vital signs: Vital Signs Temperature 36.6 C 10/26/24 16:16 Pulse 91 H 10/26/24 16:16 Respiratory Rate 18 10/26/24 16:16 Blood Pressure 127/86 10/26/24 16:16 Pulse Oximetry 98 10/26/24 16:16 Temperature 36.6 C 10/26/24 16:16 Temperature Source Oral 10/26/24 16:16 Pulse 91 H 10/26/24 16:16 Respiratory Rate 18 10/26/24 16:16 Blood Pressure 127/86 10/26/24 16:16 Pulse Oximetry 98 10/26/24 16:16 Oxygen Delivery Method Room Air 10/26/24 16:16 Oxygen Flow Rate 0 10/26/24 16:16 Pain Level 8 10/26/24 16:16 Medical Decision Making Initial Assessment: Left flank pain with burning sensation starting at 1100 hours today, consistent and severe. History of kidney stones, current pain different. Irregular menstrual cycles. Anxiety managed with propranolol and hydroxyzine. Differential Diagnosis includes but is not limited to: ovarian cyst/abscess, ectopic , nephrolithiasis, pyelnephritis, UTI, diverticulitis/colitis/IBD, inguinal hernia, muscle strain ED Course: - bloodwork ordered - Urine sample collected for analysis. - Toradol administered for pain relief with good improvement of symptoms; Pepcid administered to mitigate GI side effects. -CT abd/pelvis ordered, significant for concern for left pyelonephritis and cystitis. Abnormal gallbladder findings were noted incidentally, this does not correlate clinically with physical exam, as patient denies right upper quadrant pain, nausea/vomiting, and is nontender on exam I independently interpreted the following tests: CBC notable for mild leekocytosis (11.38). UA c/w UTI (+nitrites, sml leuks, 10-20 WBCs). CMP, HCG reassuring. History and presentation consistent with pyelonephritis. Will treat with Bactrim, which patient has tolerated previously. Reviewed discharge instruction with the patient, including use of antibiotics, symptomatic management, and importance of follow-up with PCP. Prescription for 14 days of Bactrim ordered, however this course may be shortened by PCP to 7-10 days if patient has symptomatic improvement within the first 48 to 72 hours of therapy. Disposition: - Discharge: Plan for close PCP follow-up. Return if symptoms worsen or new symptoms develop. Patient voices agreement with plan of care. Patient consented to the use of [facility] Imaging Data Radiologic Study: Radiologist's impression: PROCEDURE INFORMATION: Exam: CT Abdomen And Pelvis With Contrast Exam date and time: 10/26/2024 5:07 PM Age: 39 years old Clinical indication: Abdominal pain; Localized; Left lower quadrant (llq); Llq pain radiating to flank TECHNIQUE: Imaging protocol: Computed tomography of the abdomen and pelvis with contrast. COMPARISON: No relevant prior studies available. FINDINGS: Liver: Normal. No mass. Gallbladder and biliary ducts: The gallbladder is filled with gallstones. The wall appears slightly thickened and hyperemic. Pancreas: Normal. No ductal dilation. Spleen: Normal. No splenomegaly. Adrenal glands: Normal. No mass. Kidneys and ureters: Bilateral renal cysts. There is no hydronephrosis or hydroureter. There are 2 areas of decreased perfusion involving the left renal lower pole series 8, images 47 -50 and the midpole images 41-43. . Stomach and bowel: Unremarkable. No obstruction. No mucosal thickening. Appendix: No evidence of appendicitis. Intraperitoneal space: Unremarkable. No free air. No significant fluid collection. Vasculature: Unremarkable. No abdominal aortic aneurysm. Lymph nodes: Unremarkable. No enlarged lymph nodes. Urinary bladder: Even allowing for incomplete distension there may be mild bladder wall thickening. Reproductive: Unremarkable as visualized. Bones/joints: Unremarkable. No acute fracture. Soft tissues: Unremarkable. IMPRESSION: 1. Concern for left renal pyelonephritis. 2. Possible cystitis. 3. Abnormal gallbladder findings. Acute cholecystitis is not excludable. PFSH All Active Problems (Updated 10/26/24 @ 18:03 by Catherine Hurd) Pyelonephritis (Acute) Other specified counseling (Acute) S/P tubal ligation (Acute) (normal spontaneous vaginal delivery) (Acute) Sterilization consult (Acute) Medical History (Updated 10/26/24 @ 18:03 by Catherine Hurd) No significant past medical history Surgical History (Updated 01/09/19 @ 08:18 by Alxe Estrada MD) No significant past surgical history Family History Mother Anemia Blood clot in vein Maternal Aunt Breast cancer Maternal Aunt Breast cancer Social History Smoking/Tobacco Use Status: Current-Occasional Tobacco Type: cigarettes Smoking risk assessment performed?: Yes Alcohol Intake: never Substance use type: does not use Do you feel safe at home: Yes
--- NOTE | 2024-10-26 16:30 | DI.CT_ITS ---
Exam(s) CT ABDOMEN PELVIS W EXAM: CT ABDOMEN PELVIS W CLINICAL HISTORY: LLQ pain radiating to flank. TECHNIQUE: Imaging Protocol: Axial computed tomography images with coronal and sagittal reformatted images were created and reviewed CONTRAST MATERIAL: Intravenous: Omnipaque 350 Contrast volume:75 ml Oral: no COMPARISON: CT CT BRAIN NECK CTA from 06/06/2021 FINDINGS: ABDOMEN and PELVIS: Lung Bases: No acute findings. Liver: Normal density. No suspicious mass. Gallbladder and biliary tract: Multiple stones filling the gallbladder. No significant gallbladder wall thickening. No pericholecystic fluid. No biliary dilation. Pancreas: Normal density. No abnormal calcifications or inflammatory process. No evidence of mass. Spleen: Normal. Kidneys: Normal size, contour and axis. No radiodense stones. No obstructive uropathy. Multiple bilateral renal cysts are present. No suspicious masses seen. There ill-defined areas of decreased perfusion involving the left kidney, suspicious poor 4 pyelonephritis. There is mild urothelial enhancement involving the left renal pelvis and left ureter Adrenal glands: No masses seen. Vasculature: Abdominal aorta non-dilated. Soft tissues: Unremarkable. Bladder: Mild wall thickening. No calculi.No focal mass. Bowel: No obstruction. No bowel wall thickening. Appendix normal. Peritoneal cavity: No ascites. No focal collection. No mesenteric inflammatory response. No free air. Bones: Unremarkable for age. Reproductive organs: Unremarkable. Lymph nodes: No pathologically enlarged lymph nodes. IMPRESSION:: On patchy areas of decreased perfusion in the left kidney consistent with pyelonephritis. There is also urothelial thickening and enhancement consistent with ureteritis. There is mild bladder wall thickening which could indicate mild cystitis. No bladder calculi. Cholelithiasis without evidence of acute cholecystitis. The preliminary [facility] report was reviewed. RADIATION DOSE DELIVERED: Total DLP DATA REPOSITORY: All CT scans at this facility are submitted to the National Radiology Data Registry (NRDR) Dose Index Registry (DIR) with the [employer] (A[employer]). RADIATION OPTIMIZATION: All CT scans at this facility use at least one of these dose optimization techniques: automated exposure control; mA and/or kV adjustment per patient size (includes targeted exams where dose is matched to clinical indication); or iterative reconstruction.
[2024-10-26 16:53] LABS: Abs Immature Grans 0.04 10^3/uL (0.0-0.06); Absolute Basophil Count 0.02 10^3/uL (0.0-0.2); Absolute Eosinophil Count 0.24 10^3/uL (0.0-0.7); Absolute Monocyte Count 0.71 10^3/uL (0.1-0.8); Basophils % 0.2 %; Eosinophils % 2.1 %; HCT 39.8 % (36.0-46.0); HGB 13.2 g/dL (11.2-15.7); Immature Grans % 0.4 %; MCH 29.7 pg (27.0-33.0); MCHC 33.2 % (32.0-36.0); MCV 89 fL (80-95); MPV 10.1 fL (8.0-11.0); Monocytes % 6.2 %; Neutrophils % 69.1 %; Platelet Count 296 10^3/uL (130-400); RBC 4.45 10^6/uL (3.93-5.22); RDW-SD 39.3 fL; WBC 11.38 10^3/uL (4.4-10.8)
[2024-10-26 16:54] LABS: Absolute Neutrophil Count 7.86 10^3/uL (1.2-6.7)
[2024-10-26 16:55] LABS: Bilirubin Negative (Negative); Blood Trace-intact (Negative); Clarity Clear (Clear); Glucose Negative (Negative); Ketones Negative (Negative); Leukocyte Esterase Small (Negative); Nitrite Positive (Negative); pH 6.5 (5-8)
[2024-10-26] MEDS: Ketorolac 15 MG/ML VIAL IVP (16:56)
[2024-10-26] MEDS: Famotidine 20 MG/2 ML VIAL IVP (16:56)
[2024-10-26 17:04] LABS: Bacteria Many HPF (Negative); C & S Indicated? Yes; Casts Negative LPF (Negative); Crystals Negative HPF (Negative); Epithelial Cells Few HPF (Negative); Mucus Trace (Negative); RBC 0-2 HPF (0-2)
[2024-10-26] MEDS: Normal Saline - Diluent 50 ML VIAL IJ (17:07)
[2024-10-26] MEDS: Omnipaque 350 MG/ML 100 ML BTL IJ (17:07)
[2024-10-26 17:08] LABS: ALT 26 U/L (14-59); AST 15 U/L (15-37); Albumin 3.7 g/dL (3.4-5.0); Alkaline Phosphatase 90 U/L (46-116); Anion Gap 8.6 mmol/L (3-11); BUN 9 mg/dL (7-18); Bilirubin, Total 0.5 mg/dL (0.2-1.0); CO2 28.4 mmol/L (21.0-32.0); CREATININE 0.6 mg/dL (0.55-1.02); Calcium 8.7 mg/dL (8.5-10.1); Chloride 101 mmol/L (98-107); Estimated GFR 118.49 (mL/min/1.73m2); Glucose 89 mg/dL (74-106); Sodium 138 mmol/L (136-145); Total Protein 7.2 g/dL (6.4-8.2)
[2024-10-26 17:40] VITALS: BP 108/84; PULSE 82; RESP 18; TEMP 36.5; O2SAT 98
--- NOTE | 2024-10-26 17:49 | DI.[facility]_ITS ---
PROCEDURE INFORMATION: Exam: CT Abdomen And Pelvis With Contrast Exam date and time: 10/26/2024 5:07 PM Age: 39 years old Clinical indication: Abdominal pain; Localized; Left lower quadrant (llq); Llq pain radiating to flank TECHNIQUE: Imaging protocol: Computed tomography of the abdomen and pelvis with contrast. COMPARISON: No relevant prior studies available. FINDINGS: Liver: Normal. No mass. Gallbladder and biliary ducts: The gallbladder is filled with gallstones. The wall appears slightly thickened and hyperemic. Pancreas: Normal. No ductal dilation. Spleen: Normal. No splenomegaly. Adrenal glands: Normal. No mass. Kidneys and ureters: Bilateral renal cysts. There is no hydronephrosis or hydroureter. There are 2 areas of decreased perfusion involving the left renal lower pole series 8, images 47 -50 and the midpole images 41-43. . Stomach and bowel: Unremarkable. No obstruction. No mucosal thickening. Appendix: No evidence of appendicitis. Intraperitoneal space: Unremarkable. No free air. No significant fluid collection. Vasculature: Unremarkable. No abdominal aortic aneurysm. Lymph nodes: Unremarkable. No enlarged lymph nodes. Urinary bladder: Even allowing for incomplete distension there may be mild bladder wall thickening. Reproductive: Unremarkable as visualized. Bones/joints: Unremarkable. No acute fracture. Soft tissues: Unremarkable. IMPRESSION: 1. Concern for left renal pyelonephritis. 2. Possible cystitis. 3. Abnormal gallbladder findings. Acute cholecystitis is not excludable. Dictated and Authenticated by: Lisa Bolden MD. Orderin Ty Alexander MD
[2024-10-26] MEDS: Sulfameth/Trimeth DS, 2 TABS/BTL 1 TAB PO (18:10)
== END 2024-10-26 18:14 | disposition home or self-care (01) ==
PROVIDERS: Emergency Provider Nurse Practitioner Family
DX: N10 Acute pyelonephritis (principal); F17.210 Nicotine dependence, cigarettes, uncomplicated
CPT/HCPCS: 36415; 80053; 81025; 87077; 96374; 96375; 99285; 74177; 81003; 81015; 85025; 87086; 87186; J1885; J3490